=== PATIENT | male | born 1980 | race Caucasian/White ===

== ENCOUNTER 2017-03-07 19:46 | Emergency (ER) | payer OTHER ==
[~2017-03-07] VITALS: Ht 160 cm; Wt 80.5 kg
[~2017-03-07 19:46] MED LIST: FLAGYL500 MG PO; LEVAQUIN500 MG PO; NOHOMEMEDS; NORCO 5/3251 TABLET PO
[2017-03-07 21:02] LABS: MCH 29.1 PG (29.0-34.0); MCHC 33.4 G/DL (30.0-36.0); MCV 87.1 FL (86-99); MEAN PLAT.VOLUME 10.3 uM^3 (9.0-12.4); PLATELET COUNT 191 K/uL (156-360); RBC DIS.WIDTH-CV 12.2 % (11.8-14.6); RBC DIS.WIDTH-SD 38.8 % (39-53); RED BLOOD COUNT 5.05 M/uL (4.00-5.50); WHITE BLOOD COUNT 5.4 K/uL (4.1-10.2)
[2017-03-07 21:13] LABS: CHLORIDE 105 mEq/L (99-109); POTASSIUM 4.2 mEq/L (3.7-5.4); SODIUM 140 mEq/L (136-147)
[2017-03-07 21:15] LABS: GLUCOSE 86 mg/dL (70-99)
[2017-03-07 21:16] LABS: ANION GAP 8 MEQ/L (2-14)
[2017-03-07 21:17] LABS: TOTAL BILIRUBIN 0.7 mg/dL (0.0-1.0)
[2017-03-07 21:18] LABS: ALKALINE PHOSPHATASE 60 IU/L (3-129)
[2017-03-07 21:19] LABS: GFR ESTIMATE (CALCULATED) > 59 mL/min/
[2017-03-07 21:20] LABS: UREA NITROGEN (BUN) 13 mg/dL (9-23)
[2017-03-07 21:25] LABS: TROP-I INTERPRETATION NEGATIVE; TROPONIN-I < 0.01 ng/mL (0.0-0.30)
[2017-03-07 22:13] LABS: D-DIMER ELISA 0.36 mg/L FEU (< 0.57)
[2017-03-07 22:28] LABS: ADD MIUA? NO; BILIRUBIN NEGATIVE; BLOOD NEGATIVE; COLOR STRAW ((YELLOW)); GLUCOSE (STRIP) NEGATIVE; KETONES NEGATIVE; LEUKOCYTES NEGATIVE; NITRITE NEGATIVE; PROTEIN (STRIP) NEGATIVE; SPECIFIC GRAVITY 1.005 (1.000-1.030); UCUL ADDED? NO; UROBILINOGEN 0.2 MG/DL (0.2-1.0)
[2017-03-07 22:56] VITALS: BP 121/85
== END 2017-03-07 23:00 | disposition home or self-care (01) ==
LOC: EME 19:46
PROVIDERS: Physician Assistant
DX: R55 Syncope and collapse (principal); R05 Cough; F17.200 Nicotine dependence, unspecified, uncomplicated
CPT/HCPCS: 71020; 80053; 81003; 84484; 85027; 85379; 93005; 99281; 99284